=== PATIENT | male | born 1945 | race Caucasian/White ===

== ENCOUNTER 2017-09-09 05:25 | Day surgery (SDC) | payer OTHER ==
[2017-09-09] MEDS ORDERED: ROCURONIUM 50 MG INJ (07:32)
[2017-09-09] MEDS ORDERED: FENTAnyl 50 MCG/ML VIAL (07:32)
[2017-09-09] MEDS ORDERED: MIDAZOLAM 1 MG/ML 2 ML INJ (07:32)
[2017-09-09] MEDS ORDERED: ROPIVACAINE 0.5 % 30 ML VIAL (07:32)
[2017-09-09] MEDS ORDERED: PROPOFOL 20 ML (07:32)
[2017-09-09] MEDS ORDERED: CEFAZOLIN 1 GM INJ (07:32)
[2017-09-09] MEDS: BUPIVACAINE 0.25% (MPF) 30 ML INJ (08:09)
[2017-09-09] MEDS ORDERED: ACETAMINOPHEN 1000MG/100ML IV 100 ML (08:17)
[2017-09-09] MEDS ORDERED: DEXAMETHASONE 4 MG/ML 1 ML INJ (08:18)
[2017-09-09] MEDS ORDERED: SUGAMMADEX SODIUM 200 MG/2 ML VIAL IV (08:18)
[2017-09-09] MEDS ORDERED: METOCLOPRAMIDE 10 MG INJ (08:18)
[2017-09-09] MEDS ORDERED: KETOROLAC 30 MG INJ (08:18)
[2017-09-09] MEDS ORDERED: ONDANSETRON 4 MG INJ (08:18)
[2017-09-09] MEDS ORDERED: OXYCODONE/ACETAMINOPHEN (5/325) TAB PO (08:30)
[2017-09-09] MEDS ORDERED: ONDANSETRON 4 MG INJ IV (08:30)
[2017-09-09] MEDS: morphine 2 MG INJ IV (09:02)
[2017-09-09] MEDS: OXYCODONE/ACETAMINOPHEN (5/325) TAB PO (09:22)
== END 2017-09-14 08:55 | disposition home or self-care (01) ==
LOC: SDS 05:25
DX: K80.10 Calculus of gallbladder with chronic cholecystitis without obstruction (principal); K66.0 Peritoneal adhesions (postprocedural) (postinfection); K21.9 Gastro-esophageal reflux disease without esophagitis; I10 Essential (primary) hypertension; N40.0 Benign prostatic hyperplasia without lower urinary tract symptoms
CPT/HCPCS: 47562; 88304

== ENCOUNTER 2019-04-20 11:39 | Day surgery (SDC) | payer MEDICARE, OTHER ==
[2019-04-20] MEDS ORDERED: PROPOFOL 20 ML (12:40)
== END 2019-04-20 14:25 | disposition home or self-care (01) ==
LOC: GIL 11:39
DX: K29.50 Unspecified chronic gastritis without bleeding (principal); I10 Essential (primary) hypertension
CPT/HCPCS: 43239; 88305; 88312